=== PATIENT | female | born 1970 ===

== ENCOUNTER 2018-01-12 22:39 | Emergency (ER) | payer SELFPAY ==
[2018-01-12 22:48] VITALS: O2SAT 100
--- NOTE | 2018-01-12 23:43 | ED PDOC ---
HPI: SOB/CHF/COPD Time Seen by Provider: 01/12/18 22:50 Chief Complaint (Nursing): Shortness Of Breath Chief Complaint (Provider): Shortness Of Breath History Per: Patient History/Exam Limitations: no limitations Onset/Duration Of Symptoms: Hrs (x1) Current Symptoms Are (Timing): Still Present Associated Symptoms: Fever. denies: Chest Pain, Bloody Cough, Productive Cough Additional Complaint(s): 47 y/o female with a PMHx of chronic bells palsy presents to the ED complaining of shortness of breath associated with a fever and dry mouth, onset one hour prior to arrival. Patient reports of having trouble swallowing with a foreign body sensation at the right side of her neck, onset 4 days ago. In addition, patient is concerned that she might be hypoglycemic because she had diabetes after having lost weight. Denies anxiety or cough. PMD: No provider Past Medical History Reviewed: Historical Data, Nursing Documentation, Vital Signs Vital Signs: Last Vital Signs Temp 98.1 F 01/13/18 02:54 Pulse 75 01/13/18 03:35 Resp 18 01/13/18 02:54 BP 124/74 01/13/18 02:54 Pulse Ox 100 01/13/18 03:35 - Medical History PMH: Diabetes, HTN Other PMH: Kouts Palsy - Surgical History Surgical History: Tonsillectomy Other surgeries: Thyroid Nodule Resection - Family History Family History: States: Diabetes - Social History Current smoker - smoking cessation education provided: No Alcohol: None Drugs: Denies - Home Medications Home Medications: Ambulatory Orders Medication Instructions Recorded Polyethylene Glycol/Polyvinyl 1 - 2 drop RIGHTEYE Q4 #1 bottle 02/06/14 [Artificial Tears] Prednisone 60 mg PO DAILY 7 Days tab 02/06/14 Valacyclovir HCl [Valacyclovir] 1 gm PO TID 7 Days tab 02/06/14 Sodium Chloride [[place] Eye Wash] 3 ml OD Q2H #50 ml 02/16/14 predniSONE 50 mg PO DAILY #5 tab 12/12/14 Ibuprofen [Motrin] 600 mg PO Q8 #20 tab 12/31/14 Prednisone 50 mg PO DAILY #5 tablet 01/13/18 - Allergies Allergies/Adverse Reactions: Allergies Allergy/AdvReac Type Severity Reaction Status Date / Time shrimp Allergy RASH Verified 01/12/18 22:48 Review of Systems ROS Statement: Except As Marked, All Systems Reviewed And Found Negative (As per HPI) Constitutional: Positive for: Fever, Other (Possible Hypoglycemia) ENT: Positive for: Other (Difficulty swallowing) Cardiovascular: Negative for: Chest Pain Respiratory: Positive for: Shortness of Breath. Negative for: Cough Physical Exam - Reviewed Nursing Documentation Reviewed: Yes Vital Signs Reviewed: Yes - Physical Exam Appears: Positive for: In Acute Distress (mild Respiratory distress) Skin: Negative for: Normal Color (Flushed) ENT: Positive for: Pharynx Is (clear), Other (Dry Mucous Membranes ). Negative for: Pharyngeal Erythema, Tonsillar Exudate Neck: Negative for: Normal (Mild tenderness to palpation at the right anterior neck. No palpable mass or lymphadenopathy) Cardiovascular/Chest: Positive for: Regular Rate, Rhythm, Chest Non Tender Respiratory: Positive for: Normal Breath Sounds. Negative for: Wheezing Gastrointestinal/Abdominal: Positive for: Soft. Negative for: Tenderness Back: Positive for: Normal Inspection. Negative for: Decreased ROM Extremity: Positive for: Normal ROM. Negative for: Deformity Lymphatic: Negative for: Adenopathy Neurologic/Psych: Positive for: Alert, Oriented, Facial Droop - Laboratory Results Result Diagrams: 01/12/18 23:42 01/12/18 23:42 - ECG ECG: Positive for: Interpreted By Co ECG Rhythm: Positive for: Normal QRS, Normal ST Segment, Sinus Rhythm Rate: 75 O2 Sat by Pulse Oximetry: 100 (RA) Pulse Ox Interpretation: Normal - Radiology X-Ray: Interpreted by Co X-Ray Interpretation: No Acute Disease Medical Decision Making Medical Decision Making: Time: 2303 Impression: Shortness of breath and neck mass Differentials include but not limited to Pulmonary Embolism, anxiety and thyroid disorder Plan: -- EKG -- B-Type Natriuretic -- CMP -- Magnesium -- Phosphorus -- Thyroid Stimulating Hormone -- Troponin I -- ED Urine -- ED Urine Dipstic -- CBC with differentials -- D Dimer [COAG] -- PTT -- Prothrombin Time -- CXR Two Views -- Blood Culture -- IV Insertion -- Rapid Strep Group A Antigen Time: 27 Plan: -- CT Angio Chest PE Protocol -- CT Neck Soft Tissue w/ Contrast Time: 218 CTA RESULTS FINDINGS: Pulmonary arteries: Unremarkable. No pulmonary embolism. Aorta: No acute findings. No thoracic aortic aneurysm. Lungs: Unremarkable. No mass. No consolidation. Pleural space: Unremarkable. No significant effusion. No pneumothorax. Heart: Unremarkable. No cardiomegaly. No significant pericardial effusion. No evidence of RV dysfunction. Bones/joints: No acute fracture. No dislocation. Soft tissues: Unremarkable. Lymph nodes: Unremarkable. No enlarged lymph nodes. IMPRESSION: No pulmonary embolism. Thank you for allowing us to participate in the care of your patient. Dictated and Authenticated by: Brooks Gold MD 01/13/2018 2:19 AM Eastern Time ( & [place]) Time: 0221 CT NECK RESULTS FINDINGS: Oropharynx: Unremarkable. No significant tonsillar enlargement. No peritonsillar abscess. Hypopharynx: Unremarkable. Larynx: Unremarkable. Normal epiglottis. Trachea: Unremarkable. Retropharyngeal space: Unremarkable. Submandibular/parotid glands: Unremarkable. Glands are normal in size. Thyroid: 9 mm nodule in the right thyroid isthmus. The left thyroid lobe has most likely been resected. 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 No acute fracture. Soft tissues: Unremarkable. Vasculature: No acute findings. Lymph nodes: Unremarkable. No lymphadenopathy. Lung apices: Unremarkable as visualized. IMPRESSION: No acute findings. Thank you for allowing us to participate in the care of your patient. Dictated and Authenticated by: Brooks Gold MD 01/13/2018 2:21 AM Eastern Time ( & [place]) Time: 0253 -- Discussed with patient findings, who reports that her symptoms are similar to when she was initially diagnosed with thyroid nodules on the left side requiring surgery. Patient requesting symptomatic treatment for dysphagia. Will prescribe short course of prednisone for symptoms. Patient instructed to follow up with clinic. -- Patient is stable for discharge. Scribe Attestation: Documented by Melissa Almanzar acting as a scribe for Dr. Luanne Swann. Provider Scribe Attestation: All medical record entries made by the Scribe were at my direction and personally dictated by me. I have reviewed the chart and agree that the record accurately reflects my personal performance of the history, physical exam, medical decision making, and the department course for this patient. I have also personally directed, reviewed, and agree with the discharge instructions and disposition. Disposition - Clinical Impression Clinical Impression: Dysphagia, Thyroid nodule - Patient ED Disposition Is Patient to be Admitted: No Counseled Patient/Family Regarding: Studies Performed, Diagnosis, Need For Followup - Disposition Referrals: [facility] [Outside] - 01/14/18 Disposition: Routine/Home Disposition Time: 02:48 Condition: STABLE Prescriptions: Prednisone 50 mg PO DAILY #5 tablet Instructions: Dysphagia, Thyroid Nodules Print Language: URDU
[2018-01-12 23:45] LABS: BASO # 0.1 K/uL (0.0-0.2); BASO % 0.7 % (0.0-2.0); EOS # 0.1 K/uL (0.0-0.7); EOS % 1.7 % (0.0-4.0); HEMOGLOBIN 12.8 g/dL (12.0-16.0); LYMPH % 23.2 % (20.0-40.0); MEAN CORPUSCULAR HEMOGLOBIN 39.2 pg (27.0-31.0); MEAN CORPUSCULAR HGB CONC 38.5 g/dL (33.0-37.0); MEAN PLATELET VOLUME 10.8 fl (7.2-11.7); MONO # 0.4 K/uL (0.0-0.8); NEUT # 5.9 K/uL (1.8-7.0); NEUT % 69.4 % (50.0-75.0); NRBC % 0.2 % (0.0-0.0); RBC 3.27 Mil/uL (3.80-5.20); RED CELL DISTRIBUTION WIDTH 12.3 % (11.5-14.5); WHITE BLOOD COUNT 8.6 K/uL (4.8-10.8)
[2018-01-12 23:56] LABS: PROTHROMBIN TIME 10.6 Seconds (9.8-13.1)
[2018-01-13 00:01] LABS: ALB/GLOB RATIO 1.2 (1.0-2.1); ALBUMIN 4.3 g/dL (3.5-5.0); ALT/SGPT 26 U/L (9-52); AST/SGOT 24 U/L (14-36); BLOOD UREA NITROGEN 23 mg/dl (7-17); CALCIUM 9.3 mg/dL (8.4-10.2); GFR NON-AFRICAN AMERICAN > 60
[2018-01-13] MEDS ORDERED: Sodium Chloride 0.9% 50 ML IV ONE (00:45)
[2018-01-13] MEDS ORDERED: Iodixanol 320 MG/ML 100 ML BOTTLE IV ONE (00:45)
[2018-01-13] MEDS ORDERED: Iodixanol 320 mg/ml 50 ml Sol IV ONE (00:45)
[2018-01-13 02:33] VITALS: PULSE 75
[2018-01-13 02:55] VITALS: BP 124/74; RESP 18; TEMP 98.1
--- NOTE | 2018-01-13 09:30 | CARD ---
APPROVED REPORT Date of service: 01/12/2018 <Conclusion> Normal sinus rhythm Normal ECG
--- NOTE | 2018-01-13 10:32 | CT ---
Date of service: 01/13/2018 PROCEDURE: CT Chest with contrast (Pulmonary Angiogram) HISTORY: sob elevated ddimer COMPARISON: None available. TECHNIQUE: Axial computed tomography images were obtained of the chest in the pulmonary arterial phase of enhancement. Coronal and sagittal reformatted images were created and reviewed. Intravenous contrast dose: 95 mL Visipaque 320 Radiation dose: Total exam DLP = 341.4 mGy-cm. This CT exam was performed using one or more of the following dose reduction techniques: Automated exposure control, adjustment of the mA and/or kV according to patient size, and/or use of iterative reconstruction technique. FINDINGS: PULMONARY ARTERIES: Unremarkable. No pulmonary embolism. AORTA: No acute findings. No thoracic aortic aneurysm. LUNGS: Unremarkable. No nodule, mass or pulmonary consolidation. PLEURAL SPACES: Unremarkable. No effusion or pneumothorax. HEART: Unremarkable. No cardiomegaly. No significant pericardial effusion. LYMPH NODES: No lymphadenopathy. BONES, CHEST WALL: Unremarkable. No fracture or destructive lesion OTHER FINDINGS: Left hemithyroidectomy with small amount of residual left thyroid tissue. Calcified right lower pole nodule. IMPRESSION: Unremarkable CT pulmonary angiogram. No pulmonary embolus.
--- NOTE | 2018-01-13 11:16 | CT ---
Date of service: 01/13/2018 PROCEDURE: CT NECK WITH CONTRAST HISTORY: neck mass COMPARISON: None available. TECHNIQUE: CT of the neck with intravenous contrast. Coronal and sagittal reformats generated. Intravenous contrast dose: 50 mL Visipaque 320 Radiation dose: DLP 300.46 mGy-cm This CT exam was performed using one or more of the following dose reduction techniques: Automated exposure control, adjustment of the mA and/or kV according to patient size, and/or use of iterative reconstruction technique. FINDINGS: NASOPHARYNX: Within normal limits. SUPRAHYOID NECK: No mass or abnormal enhancement in the oropharynx, oral cavity, parapharyngeal space and retropharyngeal space. INFRAHYOID NECK: No mass or abnormal enhancement in the larynx, hypopharynx, and supraglottic space. Vocal cords intact. MASS: None. GLANDS: Parotid and submandibular glands unremarkable. The right thyroid lobe is enlarged with calcified and noncalcified nodules. The left thyroid lobe is diminutive. LYMPH NODES: No lymphadenopathy Lymphadenopathy. CERVICAL SPINE: No fracture or focal lesion. VASCULAR STRUCTURES: Unremarkable. OTHER FINDINGS: None. IMPRESSION: No mass or abnormal enhancement. No acute findings. Multinodular right thyroid lobe. A dedicated thyroid ultrasound on a nonemergent basis is recommended for further evaluation. A preliminary report was provided by [employer].
== END 2018-01-13 03:32 | disposition home or self-care (01) ==
LOC: H.ER 22:39
DX: R13.10 Dysphagia, unspecified (principal); E04.1 Nontoxic single thyroid nodule; E11.9 Type 2 diabetes mellitus without complications; I10 Essential (primary) hypertension; J44.9 Chronic obstructive pulmonary disease, unspecified
CPT/HCPCS: 70491; 71046; 71275; 80053; 82948; 83735; 83880; 84100; 84443; 84484; 85025; 85378; 85610; 85730; 87040; 87070; 87430; 93005; 99283; Q9967